=== PATIENT | female | born 1995 | race Caucasian/White ===

== ENCOUNTER 2018-06-22 12:50 | Emergency (ER) | payer SELFPAY ==
[~2018-06-22] VITALS: Ht 154.9 cm; Wt 58.2 kg
[2018-06-22 12:52] VITALS: BP 114/76
== END 2018-06-22 16:07 | disposition left against medical advice (07) ==
LOC: EMS 12:53
DX: R07.9 Chest pain, unspecified (principal); R00.2 Palpitations; Z53.21 Procedure and treatment not carried out due to patient leaving prior to being seen by health care provider
CPT/HCPCS: 93005